=== PATIENT | male | born 1995 | race Caucasian/White ===

== ENCOUNTER 2017-12-04 22:45 | Emergency (ER) | payer BC, MEDICAID ==
[2017-12-04] MEDS ORDERED: PROPARACAINE HCL 0.5% OPHTHALMIC SOL ONE (22:57)
[2017-12-04] MEDS: PROPARACAINE HCL 0.5% OPHTHALMIC SOL OP PRN ×2 (22:59→23:00)
[2017-12-04 23:17] VITALS: BP 133/86; PULSE 71; RESP 16; TEMP 97.3; O2SAT 98
== END 2017-12-04 23:09 | disposition home or self-care (01) ==
LOC: ED 22:45
DX: T15.02XA Foreign body in cornea, left eye, initial encounter (principal); X58.XXXA Exposure to other specified factors, initial encounter; Y99.0 Civilian activity done for income or pay
CPT/HCPCS: 99282; 99283; A9270-GY